=== PATIENT | male | born 1970 | race Caucasian/White ===

== ENCOUNTER 2022-07-15 11:51 | Outpatient (CLI) | payer OTHER, SELFPAY ==
[2022-07-15 14:06] LABS: Chloride* 104 mmol/L (96-114); Sodium* 138 mmol/L (135-149)
[2022-07-15 14:07] LABS: Potassium* 4.4 mmol/L (3.6-5.1)
[2022-07-15 14:09] LABS: Alanine Aminotransferase* 26 U/L (4-50); Blood Urea Nitrogen* 25 mg/dL (7-30); Carbon Dioxide* 26 mmol/L (20-32); Cholesterol* 117 mg/dL (90-199); Creatinine* 1.3 mg/dL (0.5-1.5); Estimated Glomerular Filt Rate 66 ml/min; Glucose* 158 mg/dL (60-115); Triglycerides* 118 mg/dL (40-149)
[2022-07-15 14:10] LABS: Calcium* 9.3 mg/dL (8.4-10.6); HDL Cholesterol* 33 mg/dL (>=40); LDL Cholesterol Calculated 60 mg/dL (<100)
== END 2022-07-15 11:52 | disposition home or self-care (01) ==
PROVIDERS: PCP Family Medicine; Visit Provider Family Medicine
DX: E78.5 Hyperlipidemia, unspecified (principal); I10 Essential (primary) hypertension; E11.9 Type 2 diabetes mellitus without complications
CPT/HCPCS: 80048; 80061; 84460

== ENCOUNTER 2023-02-09 09:02 | Outpatient (CLI) | payer OTHER, SELFPAY ==
[2023-02-09 13:46] LABS: Chloride* 105 mmol/L (96-114); Potassium* 4.5 mmol/L (3.6-5.1); Sodium* 138 mmol/L (135-149)
[2023-02-09 13:49] LABS: Blood Urea Nitrogen* 18 mg/dL (7-30); Carbon Dioxide* 25 mmol/L (20-32); Estimated Glomerular Filt Rate 90 ml/min
[2023-02-09 13:50] LABS: Calcium* 9.3 mg/dL (8.4-10.6); Glucose* 189 mg/dL (60-115)
[2023-02-09 13:54] LABS: Basophils Absolute Auto 0.02 K/uL (0.00-0.30); Basophils Percent Auto 0.2 % (0.0-3.0); Hematocrit 48.3 % (37.0-53.0); Hemoglobin* 16.5 gm/dL (13.5-17.5); Immature Granulocytes Abs Auto 0.03 K/uL (0.00-0.30); Immature Granulocytes Pct Auto 0.3 %; Lymphocytes Percent Auto 35.2 % (20-44); Mean Corpuscular HGB Conc 34 gm/dL (32-36); Mean Corpuscular Hemoglobin 29 pg (26-34); Mean Corpuscular Volume 84 fL (80-100); Monocytes Percent Auto 6.9 % (0.0-11.0); Neutrophils Percent Auto 55.4 % (42.0-72.0); Platelet Count* 229 K/uL (140-440); RDW Coefficient of Variation % 13.2 % (11.5-15.5); Red Blood Count 5.73 m/uL (4.30-5.90); White Blood Count* 9.94 K/uL (4.50-11.00)
[2023-02-09 14:06] LABS: Slide Review Reflex No
[2023-02-09 14:20] LABS: PSA Screen* 0.51 ng/mL (0.10-4.00)
== END 2023-02-09 09:03 | disposition home or self-care (01) ==
PROVIDERS: PCP Family Medicine; Visit Provider Family Medicine
DX: E11.9 Type 2 diabetes mellitus without complications (principal); I10 Essential (primary) hypertension; R10.9 Unspecified abdominal pain; E78.5 Hyperlipidemia, unspecified; Z12.5 Encounter for screening for malignant neoplasm of prostate
CPT/HCPCS: 80048; 84153; 85025

== ENCOUNTER 2023-02-25 09:30 | Outpatient (CLI) | payer OTHER, SELFPAY ==
--- NOTE | 2023-02-25 10:30 | CRLHL7_ITS ---
For Patients: As a result of the Century Cures Act, medical imaging exams and procedure reports are released immediately into your electronic medical record. You may view this report before your referring provider. If you have questions, please contact your health care provider. Indication: Abd pain COPD Technique: Contrast CTchest abdomen and pelvis Comparison: No comparison Findings: 9mm ground glass nodule in the left upper lobe . Normal caliber thoracic aorta heart size is normal there is no pericardial effusion. Scattered granulomas. Calcified mediastinal hilar lymph nodes. Lungs are otherwise clear. Spleen pancreas adrenal glands are unremarkable. Tiny too small to characterize low attenuation lesions in the right hepatic lobe. Right renal cyst tiny too small to characterize low-attenuation lesion left kidney. Ectasia of the abdominal aorta. Urinary bladder unremarkable. Two prostate gland enlarged abundant stool in the colon. There is diverticulosis. Lumbar fusion change. No suspicious bony lesions. Subcutaneous soft tissue stranding in the mid abdominal wall. Impression: 1. No acute findings in the chest abdomen or pelvis. 2. 9 millimeter left upper lobe ground-glass nodule follow-up per Fleischner society guidelines. 3. Enlarged prostate gland Please note that all CT scans at this facility use dose modulation, iterative reconstruction, and/or weight-based dosing when appropriate to reduce radiation dose to as low as reasonably achievable. Dictated by Parris Owusu MD @ 02/25/2023 11:25:15 AM (Electronically Signed)
== END 2023-02-25 09:31 | disposition home or self-care (01) ==
LOC: CT 09:31
PROVIDERS: PCP Family Medicine; Visit Provider Family Medicine
DX: R10.9 Unspecified abdominal pain (principal); J44.9 Chronic obstructive pulmonary disease, unspecified; R91.8 Other nonspecific abnormal finding of lung field; N40.0 Benign prostatic hyperplasia without lower urinary tract symptoms
CPT/HCPCS: 71260; 74177; Q9967

== ENCOUNTER 2023-03-02 12:48 | Outpatient (CLI) | payer OTHER, SELFPAY ==
--- NOTE | 2023-03-02 13:53 | W.ANESCHARGE ---
Anesthesia Charges Start Date/Time Anesthesia Start Date: 03/02/23 Anesthesia Start Time: 13:16 Stop Date/Time Anesthesia Stop Date: 03/02/23 Anesthesia Stop Time: 13:50
== END 2023-03-02 12:49 | disposition home or self-care (01) ==
PROVIDERS: PCP Family Medicine; Visit Provider Internal Medicine
DX: Z12.11 Encounter for screening for malignant neoplasm of colon (principal); K63.5 Polyp of colon; Z86.010 Personal history of colon polyps
CPT/HCPCS: 00811; 45385; 88305; J2704

== ENCOUNTER 2023-09-30 12:30 | Outpatient (CLI) | payer OTHER, SELFPAY | END 2023-09-30 12:31 | disposition home or self-care (01) | PROVIDERS: PCP Family Medicine; Visit Provider Family Medicine | DX: E78.2 Mixed hyperlipidemia (principal); I10 Essential (primary) hypertension | CPT/HCPCS: 80048; 80061 ==

== ENCOUNTER 2024-08-08 10:16 | Outpatient (CLI) | payer OTHER, SELFPAY ==
--- OUTSIDE RECORDS SUMMARY | 2024-08-08 10:20 | XMS_ITS | Clinical Summary ---
Author Organization [facility] Address [place], [place] [address] Care Team Providers Care Linen Clerk Name Role Phone Gonzalo Steven MD Primary Care Provider + Allergies Active Allergy Reactions Criticality Noted Date Comments Naproxen Rash 09/09/2013 Medications Medication Sig Dispensed Refills Start Date End Date Status aspirin (ECOTRIN) 81 mg enteric coated tabletIndication s:Hypertension Take 1 tablet by mouth once daily with a meal. 0 09/10/2015 Active albuterol HFA 90 mcg/actuation inhaler Inhale 2 Puffs by mouth every 4 hours if needed for Wheezing/Difficul t Breathing. 18 g 1 02/17/2020 Active clobetasol 0.05% (TEMOVATE 0.05% OINTMENT) 0.05 % ointment Apply topically to affected area(s) sparingly 2 times daily. 15 g 1 11/27/2020 Active gabapentin (NEURONTIN) 300 mg capsule Take 2 capsules by mouth 3 times daily. 540 capsule 1 01/10/2021 Active diclofenac (VOLTAREN) 75 mg delayed-release tablet Take 1 Tablet (75 mg) by mouth 2 times daily. 60 Tablet 5 07/18/2021 Active imiquimod 5% cream (Aldara) 5 % cream Apply topically to affected area(s) 3 times per week. 12 Each 1 04/11/2022 Active blood sugar diagnostic (Glucocard Vital Test Strips) strip Test 4 times daily. 400 Each 5 04/10/2022 Active lancets (TechLITE Lancets) 28 gauge misc Use to check blood glucose three times daily. 200 Each 3 07/23/2022 Active FreeStyle Carey 2 [place] As directed 1 Each 02/09/2023 Active polyethylene glycol-electroly te (GOLYTELY) 236-22.74-6.74 -5.86 gram suspension Drink 240 mL orally every 10 minutes until fecal effluent is clear. 4000 mL 02/10/2023 Active traMADoL (ULTRAM) 50 mg tablet Take 1 Tablet (50 mg) by mouth 4 times daily if needed for pain. 120 Tablet 5 04/20/2023 Active semaglutide (Ozempic) 1 mg/dose (4 mg/3 mL) pen Inject 1 mg subcutaneous once weekly. 3 mL 5 09/28/2023 Active losartan (COZAAR) 100 mg tablet Take 1 Tablet (100 mg) by mouth once daily. 90 Tablet 3 11/03/2023 Active meloxicam 15 mg tablet Take 1 Tablet (15 mg) by mouth once daily. 30 Tablet 2 01/18/2024 Active insulin glargine, U-100, 100 unit/mL (3 mL) pen Inject 72 units subcutaneous once daily. 75 mL 2 01/31/2024 Active insulin lispro, U-100, (HUMALOG KWIKPEN; ADMELOG SOLOSTAR) 100 unit/mL inpn pen Inject 26-30 units subcutaneous three times daily. 75 mL 5 01/31/2024 Active Pen Needle 31 gauge x 5/16 (disposable insulin pen needle) Use 4 per day 100 Each 12 02/03/2024 Active simvastatin (ZOCOR) 40 mg tablet Take 1 Tablet (40 mg) by mouth once daily. 90 Tablet 2 02/03/2024 Active LORazepam (ATIVAN) 1 mg tablet Take 1 Tablet (1 mg) by mouth 3 times daily if needed for anxiety. 90 Tablet 02/04/2024 Active metoprolol succinate SR (TOPROL XL) 200 mg Sustained-Releas e tablet Take 1 Tablet (200 mg) by mouth once daily. 90 Tablet 05/17/2024 Active oxyCODONE-acetam inophen (PERCOCET) 5-325 mg per tablet Take 1 Tablet by mouth every 6 hours if needed for pain. 60 Tablet 06/20/2024 Active FreeStyle Carey 2 Sensor Change every 14 days. 6 Each 06/24/2024 Active oxyCODONE-acetam inophen (PERCOCET) 5-325 mg per tablet Take 1 Tablet by mouth every 6 hours if needed for pain. 60 Tablet 07/19/2024 Active triamterene-hydr ochlorothiazide, 37.5-25 mg, (DYAZIDE) 37.5-25 mg capsule Take 1 Capsule by mouth once daily in the morning. 90 Capsule 08/02/2024 Active triamterene-hydr ochlorothiazide, 37.5-25 mg, (DYAZIDE) 37.5-25 mg capsule Take 1 Capsule by mouth every morning. 90 Capsule 3 08/05/2023 4 Discontinue d(Reorder (E-cancel not sent)) Active Problems Problem Noted Date Diagnosed Date Essential hypertension 08/11/2018 Type 2 diabetes mellitus wit hout complication, with long-term current use of insulin 09/29/2016 FH: colon cancer 10/19/2014 Tubular adenoma of colon 10/19/2014 Issue of repeat prescriptions 07/02/2011 Overview (07/02/2011): DISPLACEMENT LUMBAR INTERVERTEBRAL DISC - taking Percocet Tobacco abuse 03/22/2011 Hyperlipidemia 04/14/2009 Necrotizing Cellulitis Lt thigh 01/05/2009 Insomnia, unspecified 11/30/2007 Adjustment disorder with depressed mood 10/30/20 07 Displacement of lumbar inter vertebral disc without myelopathy 06/28/2007 Tobacco use disorder 06/28/2007 Resolved Problems Problem Noted Date Diagnosed Date Resolved Date Mass of soft palate 09/16/2018 09/23/20 18 Necrotizing Cellulitis Lt thigh 04/09/2010 03/31/2017 Chest pain, unspecified 04/02/201008/30 Hypertension 04/14/2009 08/11/2018 DM Type 2 (Diabetes Mellitus , Type 2) A1C <7.5 01/21/2009 09/29/2016 Hyperglycemia 01/05/2009 04/14/2009 Immunizations Name Administration Dates Next Due Influenza, IIV3 (Age >=3 years) 11/17/2013,09/14,10/14/2011,09/16/2010 Influenza, IIV4 08/11/2018,09/16/2017,09/10/2015 ,08/11/2014 Tdap 02/22/2009 Family History Medical History Relation Name Comments Hypertension Brother 2 Cancer-colon Maternal Grandfather Cancer-colon Maternal Uncle Hypertension Mother Other Mother precancerous co beny polyp Relation Name Status Comments Brother 1 Alive twin Brother 2 Father Alive Maternal Grandfather Maternal Uncle Mother Alive Social History Tobacco Use Types Packs/Day Years Used Date Smoking Tobacco: Every Day Cigarettes 1.5 20 Smokeless Tobacco: Never Tobacco Cessation:Ready to Q uit: Yes; Counseling Given: Yes Comments:trying to quit Alcohol Use Standard Drinks/Week Comments Yes 0 (1 standard drink = 0.6 oz pur e alcohol) 6 PHQ-2 Answer Date Recorded PHQ-2 Score 0 01/30/2019 Sex and Gender Information Value Date Recorded Sex Assigned at Not on file Gender Identity Not on file Sexual Orientation Not on file Obstetrics History Last Filed Vital Signs Vital Sign Reading Time Taken Comments Blood Pressure 120/80 01/04/2019 2:11 PM SCADA TECHNICIAN Pulse 88 01/04/2019 2:11 PM SCADA TECHNICIAN Temperature 36.6 ??C (97.9 ??F) 09/16/2018 1 2:16 PM CDT Respiratory Rate 20 01/04/2019 2:11 PM SCADA TECHNICIAN Oxygen Saturation 93% 09/16/2018 1:45 PM CDT Inhaled Oxygen Concentration - - Weight 121.9 kg (268 lb 11.2 oz) 01/04/2019 2:11 PM SCADA TECHNICIAN Height 181.6 cm (5' 11.5) 01/04/2019 2:11 PM CS T Body Mass Index 36.95 01/04/2019 2:11 PM SCADA TECHNICIAN Plan of Treatment Health Maintenance Due Date Last Done Comments HIV for age 15-65 1984 Hepatitis C screening for age 18-79 1987 Tetanus booster 02/22/2019 02/22/2009 Zoster (shingles) series for age 50+ (1 of 2) 2019 BMI (ht and wt on same day) for age 18+ 01/04/2020 01/04/2019, 09/02/2018, 08/11/2018, Additional history exists Depression screening for age 12+ 01/04/2020 01/04/2019, 01/04/2019, 08/11/2018, Additional history exists Colonoscopy through age 75 05/24/202005/24, 05/24/2015, 12/25/2011, Additional history exists Lipids for age 45-75 08/11/2023 08/11/2018, 04/02/2018, 09/29/2016, Additional history exists COVID-19 vaccine series (1 - 2023- season) 2024 Influenza for age 50-64 07/31/2024 08/11/20 18, 09/16/2017, 09/10/2015, Additional history exists Tdap Completed 02/22/2009 Pneumococcal series for age 6-64 Aged Out No longer eligible based on patient's age to complete this topic Goals Goal Patient Goal Type Associated Problems Recent Progress Patient-Stated? Author BLOOD PRESSURE - MAINTAINS BP less than 140/90 Blood Pressure No Gonzalo Steven MD Medical Devices Implanted Type Area Missile Facilities Repairer Device Identifier Shelf Expiration Date Model / Serial / Lot [id number] putty Dbx 10cc [id number] [[id number]] Implanted:Qty: 1 on 08/26/2007 at [facility] Explanted:at [facility] (Quantity not on file) Spine Musculoskeletal Transplant 05/24/2009 [id number]# / [id number] / Screw Legacy 6.5x45 Titnm M/A [id number] - [id number] Implanted:Qty: 1 on 08/26/2007 at [facility] Spine SOFAMOR DANEK [id number] / / Screw Legacy 6.5x50 Titnm M/A [id number] - [id number] Implanted:Qty: 2 on 08/26/2007 at [facility] Spine [employer]ANEK [id number]# / / Screw Legacy 6.5x40 Titnm M/A [id number] - [id number] Implanted:Qty: 1 on 08/26/2007 at [facility] Spine SOFAMOR DANEK [id number]# / / Capstone 10x32 - [id number] Implanted:Qty: 1 on 08/26/2007 at [facility] Spine SOFAMOR DANEK [id number]# / / [id number] Screw Set Break-Off Hex Titnm - [id number] Implanted:Qty: 4 on 08/26/2007 at [facility] Spine SOFAMOR DANEK [id number]# / / Andrew 5.5x35 Prebent Cdh Ti Cp - [id number] Implanted:Qty: 2 on 08/26/2007 at [facility] Spine SOFAMOR DANEK [id number]# / / Procedures Procedure Name Priority Date/Time Associated Diagnosis Comments LIPID PANEL W REFLEX MEASURED LDL Add On 08/11/2018 9:06 AM CDT Hyperlipidemia, unspecified hyperlipidemia type COLONOSCOPY SCREENING Routine 05/24/2015 Tubular adenoma of colon from Last 3 Months or Most Recently Relevant to Health Maintenance Results * (ABNORMAL) LIPID PANEL W REFLEX MEASURED LDL (08/11/2018 9:06 AM CDT) CHOLESTEROL,TOTAL 131 100 - 199 mg/dL 08/11/2018 9:59 AM CDT [facility] TRIGLYCERIDES 162(H) <150 mg/dL 08/11/2018 9:59 AM CDT [facility] HDL CHOLESTEROL 36(L) >40 mg/dL 8 9:59 AM CDT [facility] NON-HDL CHOLESTEROL 95 <145 mg/dl 08/11/2018 9:59 AM CDT [facility] CHOL/HDL RATIO 3.64 <4.50 08/11/2018 9:59 AM CDT [facility] LDL CHOLESTEROL 63 <=130 mg/dL 08/11/2018 9:59 AM CDT [facility] PROVIDER ORDERED STATUS RANDOM 08/11/2018 9:59 AM CDT [facility] Blood BLOOD SPECIMEN / Unknown Venipuncture / Unknown 08/11/2018 9:06 AM CDT 08/11/2018 9:06 AM CDT Gonzalo Steven MD CHEMISTRY Performing Organization Address City/State/[facility] [[email or web address]] Co de Phone Number [address] [address] * COLONOSCOPY SCREENING (05/24/2015) Jose L Samaniego MD GI PROCEDURE ORD from Last 3 Months or Most Recently Relevant to Health Maintenance Advance Directives * Full Code (Latest Code Status on File) Date Activated Date Inactivated Comments 08/01/2015 12:44 PM 08/01/2015 3:35 PM * Full Code Date Activated Date Inactivated Comments 08/01/2015 8:42 AM 08/01/2015 12:44 PM * Full Code Date Activated Date Inactivated Comments 04/02/2010 11:29 AM 04/02/2010 10:10 PM * Full Code Date Activated Date Inactivated Comments 01/05/2009 3:55 PM 01/05/2009 9:01 PM * Full Code Date Activated Date Inactivated Comments 08/26/2007 4:26 PM 08/30/2007 12:21 PM Care Teams Linen Clerk Relationship Specialty Start Date End Date Gonzalo Steven MD [address] [place] [address] PCP - General Family Practice 09/27/20
== END 2024-08-08 10:17 | disposition home or self-care (01) ==
PROVIDERS: PCP Family Medicine; Visit Provider Family Medicine
DX: E78.2 Mixed hyperlipidemia (principal); I10 Essential (primary) hypertension; Z12.5 Encounter for screening for malignant neoplasm of prostate
CPT/HCPCS: 80048; 80061; 84460; G0103

== ENCOUNTER 2025-05-17 10:03 | Outpatient (CLI) | payer BC, SELFPAY | END 2025-05-17 10:04 | disposition home or self-care (01) | LOC: FBOREF 10:03 | PROVIDERS: PCP Family Medicine; Visit Provider Family Medicine | DX: I10 Essential (primary) hypertension (principal) | CPT/HCPCS: 80048 ==

== ENCOUNTER 2025-10-31 09:11 | Outpatient (CLI) | payer BC, SELFPAY | END 2025-10-31 09:12 | disposition home or self-care (01) | PROVIDERS: PCP Family Medicine; Visit Provider Family Medicine | DX: E78.2 Mixed hyperlipidemia (principal); Z12.5 Encounter for screening for malignant neoplasm of prostate | CPT/HCPCS: 80061; 84460; G0103 ==

== ENCOUNTER 2025-11-10 08:59 | Outpatient (CLI) | payer BC, SELFPAY ==
--- NOTE | 2025-11-10 09:15 | CRLHL7_ITS ---
For Patients: As a result of the Century Cures Act, medical imaging exams and procedure reports are released immediately into your electronic medical record. You may view this report before your referring provider. If you have questions, please contact your health care provider. INDICATION: Neck pain . Cervical radiculopathy TECHNIQUE: Noncontrast sagittal T1, T2, STIR and axial GRE sequences are provided. No comparisons. FINDINGS: The overall stature, alignment and intrinsic marrow signal of the cervical spine is within normal limits. Cervical cord is normal. C2-3, C3-4: No central canal or foraminal narrowing. C4-5: Asymmetric uncovered joint and fucaranthropathy results and mild left and no right foraminal narrowing. No central canal narrowing. C5-6: Mild disc osteophyte complex effaces the ventral thecal sac resulting in mild central canal narrowing. Moderate to severe right and moderate left foraminal narrowing due to asymmetric uncovertebral joint and facet arthropathy. C6-7: Moderate disc osteophyte complex results in moderate central canal narrowing. Uncovertebral joint and facet arthropathy results in severe bilateral foraminal narrowing with compression of the exiting C7 nerve roots. C7-T1: Uncovertebral joint and facetarthropathy results in mild left and no right foraminal narrowing. No central canal narrowing. IMPRESSION: 1. Advanced engineering changes that C6-7 results in moderate central canal narrowing with severe bilateral facet arthropathy. 2. Mild central canal narrowing with moderate to severe right and moderate left foraminal narrowing at C5-6. 3. Milder degenerative changes within the remainder of the cervical spine as outlined above. Dictated by Anton Huertas MD @ 11/11/2025 1:30:30 PM (Electronically Signed)
== END 2025-11-10 09:00 | disposition home or self-care (01) ==
LOC: MRI 09:00
PROVIDERS: PCP Family Medicine; Visit Provider Family Medicine
DX: M50.121 Cervical disc disorder at C4-C5 level with radiculopathy (principal); M50.122 Cervical disc disorder at C5-C6 level with radiculopathy; M48.02 Spinal stenosis, cervical region; M47.812 Spondylosis without myelopathy or radiculopathy, cervical region
CPT/HCPCS: 72141